=== PATIENT | male | born 1970 | race Caucasian/White ===

== ENCOUNTER 2018-12-28 17:30 | Emergency (ER) | payer BC ==
--- OUTSIDE RECORDS SUMMARY | 2018-12-28 17:36 | XMS REPORT | Summary of Care ---
:1970 Author Organization [facility] Address [address] [place] [address] Care Team Providers Name Role Phone None, Alvarado Primary Care Provider Unavailable Reason for Visit Reason Comments Follow Up Right knee ACL reconstruction 06/01/2016. Patient is doing well. Encounter Details Date Type Department Care Team Description 10/30/2018 Office Visit [facility] Ivan Thomas, S/P ACL reconstruction - [place] (Primary Dx) [facility] [address] [facility] [address] [place], [place] [id number] [place] [address] [phone] Allergies No Known Allergiesdocumented as of this encounter (statuses as of 11/01/2018) Medications No known medicationsdocumented as of this encounter (statuses as of 11/01/2018) Active Problems Problem Noted Date S/P ACL reconstruction 07/19/2016 Rupture of anterior cruciate ligament of right knee 05/20/2016 Right knee pain 04/29/2016 documented as of this encounter (statuses as of 11/01/2018) Social History Tobacco Use Types Packs/Day Years Used Date Never Smoker Smokeless Tobacco: Never Used Alcohol Use Drinks/Week oz/Week Comments Yes occasonal beer Sex Assigned at Date Recorded Not on file Job Start Date Occupation Industry Not on file Not on file Not on file Travel History Travel Start Travel End No recent travel history available. documented as of this encounter Last Filed Vital Signs Vital Sign Reading Time Taken Comments Blood Pressure 138/86 10/30/2018 9:35 AM EDT Pulse 65 10/30/2018 9:35 AM EDT Temperature - - Respiratory Rate - - Oxygen Saturation - - Inhaled Oxygen Concentration - - Weight 81.6 kg (180 lb) 10/30/2018 9:35 AM EDT Height 175.3 cm (5' 9") 10/30/2018 9:35 AM EDT Body Mass Index 26.58 10/30/2018 9:35 AM EDT documented in this encounter Progress Notes Ivan Thomas MD - 10/30/2018 8:15 AM EDT Name: Hernando Martin : 1970 Date of Service: 10/30/2018 Chief Complaint Patient presents with Follow Up Right knee ACL reconstruction 06/01/2016. Patient is doing well. SUBJECTIVE: History of Present Illness: Hernando Martin is a 48-y.o. male who presents to the office today approximately 2 years status post right knee arthroscopy, and ACL reconstruction that was done by myself. He states overall he is doingwell. He is without complaints. He denies numbess or tingling in the distal extremity. Says they've been doing range of motion exercises on a routine basis to help improve motion. OBJECTIVE: Physical Examination: BP 138/86 Pulse 65 Ht 5' 9" (1.753 m) Wt 180 lb (81.6 kg) BMI 26.58 kg/m2 The patient's right knee arthroscopy portals, and ACL incisions are well healed. There is no erythema, drainage, or signs of infection present. He has minimal swelling. No ecchymosis. He has 0 degrees extension and 120 degrees of flexion. He is neurovascularly intact distally. ASSESSMENT: S/p right knee ACL reconstruction PLAN: The patient is going to continue with his range of motion excerises. He will follow up with me as scheduled for a recheck in 1 year. Should he have any problems prior to then, he will call and we will address them. Author: Ivan Thomas MD 10/30/2018 09:39 documented in this encounter Plan of Treatment Date Type Specialty Care Team Description 11/01/2019 Office Visit Orthopedics Ivan Thomas MD [address] [place] [address] [phone] Health Maintenance Due Date Last Done Comments DEPRESSION SCREENING 1981 HIV SCREENING 01/21/1984 DIABETES SCREENING 1987 LIPID DISORDER SCREENING 1987 INFLUENZA VACCINE (#1) 2018 HPV IMMUNIZATION SERIES Aged Out No longer eligible based on patient's age to complete this topic MENINGOCOCCAL VACCINE IMM Aged Out No longer eligible based on patient's age to complete this topic PNEUMOCOCCAL 0-64 YRS Aged Out No longer eligible based on patient's age to complete this topic documented as of this encounter Implants Implanted Type Area [employer] Device Shelf Model / Identifier Expiration Serial / Lot Date Biosure Rai Screw 9mm X 20mm Right: [employer] 12/09/2020 [id number] / Implanted: Qty: 2 on 06/01/2016 by Ivan Thomas MD at [facility] [id number] / [id number] documented as of this encounter Results Not on filedocumented in this encounter Visit Diagnoses Diagnosis S/P ACL reconstruction - Primary Other postprocedural status documented in this encounter documented as of this encounter
[2018-12-28 17:58] VITALS: BP 136/93
--- NOTE | 2018-12-28 18:47 | UC ---
Lower Extremity/Ankle HPI - HPI Summary HPI Summary: Mr. Martin inverted his right ankle this afternoon workup gravel road. He felt a pop and had immediate pain. He iced it and took ibuprofen. He walks in today stating that it doesn't hurt that much to walk but is concerned. - History of Current Complaint Chief Complaint: UCLowerExtremity Stated Complaint: ANKLE INJURY Time Seen by Provider: 12/28/18 18:03 Hx Obtained From: Patient Onset/Duration: Sudden Onset - . Severity Initially: Mild Severity Currently: Mild Pain Intensity: 4 Aggravating Factor(s): Nothing Alleviating Factor(s): Rest Able to Bear Weight: Yes - Allergies/Home Medications Allergies/Adverse Reactions: Allergies Allergy/AdvReac Type Severity Reaction Status Date / Time No Known Allergies Allergy Verified 12/28/18 17:58 Home Medications: Home Medications Ibuprofen 400 mg PO ONCE 12/28/18 [History Confirmed 12/28/18] PMH/Surg Hx/FS Hx/Imm Hx Previously Healthy: Yes - Surgical History Surgical History: Yes Surgery Procedure, Year, and Place: rt acl repair, APPY, lt lower leg orif - Social History Alcohol Use: Occasionally Substance Use Type: None Smoking Status (MU): Never Smoked Tobacco - Immunization History Most Recent Influenza Vaccination: unknown Most Recent Tetanus Shot: unknown Most Recent Pneumonia Vaccination: unknown Review of Systems All Other Systems Reviewed And Are Negative: Yes Motor: Positive: Decreased ROM Musculoskeletal: Positive: Decreased ROM Physical Exam - Summary Physical Exam Summary: He is nontoxic in appearance with stable vitals. Triage Information Reviewed: Yes Appearance: Well-Appearing, No Pain Distress Vital Signs: Initial Vital Signs Temp 97.7 F 12/28/18 17:52 Pulse 70 12/28/18 17:52 Resp 18 12/28/18 17:52 BP 136/93 12/28/18 17:52 Pulse Ox 99 12/28/18 17:52 Vital Signs Reviewed: Yes Musculoskeletal Exam: Other - He's tender to palpation just proximal to the lateral malleolus. There is no ligamentous laxity in the joint. Distal neurovascular motor completely intact. Neurological Exam: Normal Skin Exam: Normal Diagnostics - Radiology Right Ankle Radiology Interpretation Completed By: ED Physician Summary of Radiographic Findings: No fracture Lower Extremity Course/Dx - Course Course Of Treatment: This likely amounts t a mild sprain and we talked about the typical treatments. I recommended a splint but he has one at home and would prefer not to have another one. - Differential Dx/Diagnosis Provider Diagnosis: Right ankle sprain Discharge ED - Sign-Out/Discharge Documenting (check all that apply): Patient Departure All imaging exams completed and their final reports reviewed: Yes - Discharge Plan Condition: Stable Disposition: HOME Patient Education Materials: Ankle Sprain (ED) Referrals: Yasemin Edmondson MD [Primary Care Provider] - - Billing Disposition and Condition Condition: STABLE Disposition: Home
== END 2018-12-28 18:55 | disposition home or self-care (01) ==
LOC: UCEAST 17:30
DX: S93.401A Sprain of unspecified ligament of right ankle, initial encounter (principal); X58.XXXA Exposure to other specified factors, initial encounter; Y92.9 Unspecified place or not applicable
CPT/HCPCS: 99211; G0463